=== PATIENT | female | born 1950 | race Caucasian/White ===

== ENCOUNTER 2019-12-23 11:56 | Day surgery (SDC) | payer MEDICARE, OTHER ==
[~2019-12-23] VITALS: Ht 170.2 cm; Wt 121.9 kg
[~2019-12-23 11:56] MED LIST: AMOX500 PO; Aspir 8181 MG PO; BISOPROLOL-HCT1 EAC1 PO; FERROUS GLUCON240 MG PO; FISH OIL 1,2001 EAC7 PO; LOSA50 PO; OMEP20ER; OMEP20ER PO; PIRO20; PRAM.125 PO; PROP20; RALO60; RXAMOX500 PO; RXNEOPOLHC AD; TYLENOL PM
--- NOTE | 2019-12-23 13:57 | NUR ---
12/23/19 1357 Rae Guillermo UPON IV INDUCTION PT'S IV WAS NOTED TO BE NOT WORKING AND INFILTRATED, IV TURNED OFF AND D/C, WARM PACK PROVIDED FOR ARM, PER DR VELEZ NO COMPRESSION DRESSING NEEDED. NEW IV RIGHT AC STARTED. PT APPEARED TO HAVE TOLERATED IT WELL. WILL NOTIFY COUNTER STACKER OF THE IV INFILTRATION LEFT ARM, AND HAVE PT MONITOR AND CALL MD IF ANY FURTHER TROUBLES.
--- NOTE | 2019-12-23 15:51 | NUR ---
12/23/19 1551 Pam Starr IV IN [facility] DC'D. WNL. PT DISCHARGED.
== END 2019-12-23 16:02 | disposition home or self-care (01) ==
LOC: ORSCSDS 11:56
PROVIDERS: Podiatrist Foot & Ankle Surgery
PROC: 0SGH04Z Fusion of Right Tarsal Joint with Internal Fixation Device, Open Approach (ICD-10-PCS; principal; 2019-12-23 13:15)
PROC: 0SGK04Z Fusion of Right Tarsometatarsal Joint with Internal Fixation Device, Open Approach (ICD-10-PCS; principal; 2019-12-23 13:15)
DX: M19.071 Primary osteoarthritis, right ankle and foot (principal); I10 Essential (primary) hypertension; K21.9 Gastro-esophageal reflux disease without esophagitis; E66.01 Morbid (severe) obesity due to excess calories; Z68.41 Body mass index [BMI] 40.0-44.9, adult; Z79.899 Other long term (current) drug therapy; Z79.82 Long term (current) use of aspirin
CPT/HCPCS: A9270-GY; C1713; C1769; J0171; J0690; J1100; J1885; J2250; J2405; J2704; J3010; J7120